=== PATIENT | male | born 1995 | race Two or more races ===

== ENCOUNTER 2017-04-15 19:49 | Emergency (ER) | payer OTHER ==
[~2017-04-15] VITALS: Ht 182.9 cm; Wt 90.7 kg
[~2017-04-15 19:49] MED LIST: CEPHALEXIN500 MG ORAL; CIPROFLOXACIN500 M2 ORAL; IBUPROFEN600 MG ORAL; KEFLEX500 MG ORAL; NAPROSYN500 M1 ORAL; NKM; RANITIDINE HCL150 MG ORAL; ZOFRAN ODT4 MG ORAL
[2017-04-15] MEDS ORDERED: Metoclopramide 10mg/2ml Inj IVP ONE (20:15)
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
[2017-04-15] MEDS ORDERED: ZOFRAN ODT4 MG ORAL (20:44)
[2017-04-15] MEDS ORDERED: PEPCID40 MG PO (20:44)
[2017-04-15 20:52] LABS: MEAN CORPUSCULAR HEMOGLOBIN 27.6 PG (27.0-31.0); MEAN CORPUSCULAR HGB CONC 32.4 G/DL (32.0-36.0); MEAN CORPUSCULAR VOLUME 85 FL (80-99); MEAN PLATELET VOLUME 7.8 FL (6.5-10.1); PLATELET COUNT 261 K/UL (150-450); RED CELL DISTRIBUTION WIDTH 10.7 % (11.6-14.8)
[2017-04-15 20:58] LABS: APPEARANCE,URINE SLIGHTLY CLOUDY; KETONES,URINE 2+ (NEGATIVE); LEUKOCYTE ESTERASE ,URINE 1+ (NEGATIVE); NITRITE,URINE NEGATIVE (NEGATIVE); PH,URINE 5 (4.5-8.0); PROTEIN,URINE 2+ (NEGATIVE); UROBILINOGEN,URINE 4 MG/DL (0.0-1.0)
[2017-04-15 21:00] LABS: WHITE BLOOD COUNT 23.2 K/UL (4.8-10.8)
[2017-04-15] MEDS ORDERED: cefOXitin Sod 1 GM in D5W 55 ML IVPB STA (21:04)
[2017-04-15 21:19] LABS: HYALINE CASTS, URINE TNTC /LPF
[2017-04-15 21:20] LABS: BACTERIA,URINE MANY /HPF
[2017-04-15] MEDS ORDERED: cefOXitin 1gm Inj ONE (21:22)
[2017-04-15 21:25] LABS: ICTOTEST POSITIVE
[2017-04-15 21:31] LABS: ALBUMIN/GLOBULIN RATIO 1.4 (1.0-2.7); CALCIUM 11.2 mg/dL (8.6-10.2); CREATININE 1.8 mg/dL (0.7-1.2); GLOMERULAR FILTRATION RATE 47.9 mL/min (>60); POTASSIUM 4.2 mEQ/L (3.4-4.9); TOTAL PROTEIN 9.6 g/dL (6.6-8.7)
[2017-04-15 22:04] LABS: BAND NEUTROPHILS % (MANUAL) 0 % (0-8); BASOPHILS % (MANUAL) 1 % (0-2); EOSINOPHILS % (MANUAL) 0 % (0-3); LYMPHOCYTES % (MANUAL) 3 % (20-45); NEUTROPHILS % (MANUAL) 94 % (45-75); PLATELET ESTIMATE ADEQUATE; TOTAL CELLS COUNTED 100
[2017-04-15 22:05] LABS: PLATELET MORPHOLOGY NORMAL
[2017-04-15 22:32] VITALS: BP 123/77
[2017-04-16] MEDS ORDERED: Azithromycin 250mg tab ORAL ONE
[2017-04-16 00:18] VITALS: BP 123/77
--- NOTE | 2017-04-16 10:17 | Diagnostic Imaging Report ---
Indication: Abdominal pain Technique: CT scan of the abdomen and pelvis utilizing automated exposure control without intravenous contrast. Axial, sagittal and coronal images were obtained. CT dose: Total DLP 769 mGycm; CTDI vol 14.6 mGy Comparison: None Findings: Evaluation of the solid organs is limited without intravenous contrast material. Lung bases are clear. Liver, adrenal glands, spleen and pancreas are grossly unremarkable. No CT evident gallstones are identified. There is no hydronephrosis. No renal or ureteral calculi are identified. The small bowel loops are normal in caliber. The appendix is normal. There is no free intraperitoneal fluid or air. Bladder is grossly unremarkable. In the region of the right inferior prostate/posterior urethra, there is a 2.4 x 1.7 cm cystic area. Impression: Normal appendix. Approximately 2.4 x 1.7 cm cystic area involving the right-sided inferior prostate/posterior urethra. It is uncertain whether this is related to the urethra itself or is periurethral. Clinical correlation recommended with further evaluation as indicated. Findings discussed with Dr. Muir 04/16/[address] scanner at [facility] is accredited by the [employer] and the scans are performed using protocols designed to limit radiation exposure to as low as reasonably achievable to attain images of sufficient resolution adequate for diagnostic evaluation.
== END 2017-04-16 00:18 | disposition home or self-care (01) ==
LOC: EMR 20:57
DX: K29.70 Gastritis, unspecified, without bleeding (principal)
CPT/HCPCS: 36415; 74176; 80053; 80300; 81003; 83690; 85007; 85025; 87086; 96374; 96375; 99284; J0694; J2765; Q0144; S0028

== ENCOUNTER 2018-05-17 11:15 | Emergency (ER) | payer OTHER ==
[~2018-05-17] VITALS: Ht 182.9 cm; Wt 90.7 kg
[~2018-05-17 11:15] MED LIST changes: +PEPCID40 MG PO
[2018-05-17 11:30] VITALS: BP 133/82
--- NOTE | 2018-05-17 12:12 | Diagnostic Imaging Report ---
Indication: Right hand pain Findings: 3 views of the right hand were obtained. Normal bony mineralization and alignment are demonstrated. No acute fractures, erosions, or periosteal reaction are seen. Soft tissues are unremarkable. Impression: No acute findings.
[2018-05-17] MEDS ORDERED: Lidocaine 1% MPF 10mg/ml 5ml INJ ONE (12:45)
[2018-05-17 13:00] VITALS: BP 122/76
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
[2018-05-17] MEDS ORDERED: BACITRACIN15 GM TOPIC (13:22)
[2018-05-17] MEDS ORDERED: IBUPROFEN600 MG ORAL (13:22)
== END 2018-05-17 13:00 | disposition home or self-care (01) ==
LOC: EMR 11:29
DX: S67.10XA Crushing injury of unspecified finger(s), initial encounter (principal); S61.310A Laceration without foreign body of right index finger with damage to nail, initial encounter; W20.8XXA Other cause of strike by thrown, projected or falling object, initial encounter; Y92.89 Other specified places as the place of occurrence of the external cause
CPT/HCPCS: 12001; 73130; 99283; Z7502

== ENCOUNTER 2019-11-27 15:26 | Emergency (ER) | payer OTHER ==
[~2019-11-27] VITALS: Ht 183.5 cm; Wt 90.7 kg
[~2019-11-27 15:26] MED LIST changes: +BACITRACIN15 GM TOPIC
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
--- NOTE | 2019-11-27 15:26 | NUR ---
ED Nurse Note: Pt admits smoking THC prior to being chased by police
[2019-11-27 15:27] VITALS: BP 133/79
[2019-11-27] MEDS ORDERED: LORazepam Inj 2mg/ml 1ml IV ONE (15:45)
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
--- NOTE | 2019-11-27 16:30 | NUR ---
ED Nurse Note: Pt admits to "bumping half a gram of cocaine"
[2019-11-27 17:22] VITALS: BP 127/86
--- NOTE | 2019-11-27 17:23 | NUR ---
ER DISCHARGE NOTE: Patient is cleared to be discharged per ERMD, pt is aox4, on room air, with stable vital signs. pt was given dc instructions, pt was able to verbalize understanding, pt id band and iv site removed without complications. pt is able to ambulate with steady gait. pt took all belongings. escorted by [employer]
== END 2019-11-27 17:24 | disposition home or self-care (01) ==
LOC: EDBD 15:26 → EMR 15:39
DX: R00.0 Tachycardia, unspecified (principal); F12.90 Cannabis use, unspecified, uncomplicated
CPT/HCPCS: 80307; 93005; 96361; 96374; 99284; J7030